=== PATIENT | female | born 1960 | race Caucasian/White ===

== ENCOUNTER 2016-06-19 09:45 | Emergency (ER) | payer OTHER, MEDICAID ==
--- NOTE | 2016-06-19 10:24 | REP ---
Clinical: Chest pain. Comparison: 04/20/2016. Findings: Portable examination creating increased interstitial markings and pulmonary vascular prominence noted. Pulmonary venous congestion cannot definitively be excluded. Trace basilar atelectasis is suggested. No obvious effusion. No pneumothorax. Skeletal structures are intact. Impression: Limited portable examination cannot exclude mild pulmonary venous congestion or basilar atelectasis. Signed by Jose David Bourgeois MD 06/19/2016 10:16 A
--- NOTE | 2016-06-19 10:38 | REP ---
Clinical: Altered mental status . Comparison: None . Findings: The ventricles, sulci, and cisterns are normal in position and appearance. Fish-white differentiation is maintained. No acute intracranial hemorrhage, mass/mass effect, pathology or trauma/injury. No evidence for acute infarction. No extra-axial fluid collection. Calvarium is intact. Paranasal sinuses and mastoid air cells are clear. Impression: Normal noncontrast head CT. No evidence for acute intracranial pathology or trauma/injury. Signed by Jose David Bourgeois MD 06/19/2016 10:29 A
[2016-06-19] MEDS ORDERED: ASPIRIN 81 MG CHEW TABLET As Ordered ONE (10:41)
[2016-06-19 11:06] LABS: BASO % 0.1 % (0.0-1.0); EOS % 0.5 % (0.0-3.0); LARGE UNSTAINED CELL # 0.1 K/mm3 (0.0-0.4); LARGE UNSTAINED CELL % 0.7 % (0.0-4.0); LYMPH # 0.1 K/mm3 (1.5-4.5); LYMPH % 1.9 % (24.0-44.0); MEAN CORPUSCULAR HEMOGLOBIN 30.5 pg (27.0-33.0); MEAN CORPUSCULAR HGB CONC 34.1 g/dl (32.0-36.5); MEAN CORPUSCULAR VOLUME 89.5 fl (80.0-96.0); MONO # 0.1 K/mm3 (0.0-0.8); MONO % 1.5 % (0.0-5.0); NEUTROPHILS # 6.6 K/mm3 (1.8-7.7); NEUTROPHILS % 95.4 % (36.0-66.0); RED CELL DISTRIBUTION WIDTH 13.7 % (11.5-14.5)
[2016-06-19 11:07] LABS: ALBUMIN 2.5 GM/DL (3.2-5.2); ALBUMIN/GLOBULIN RATIO 0.53 (1.00-1.93); ALKALINE PHOSPHATASE 72 U/L (45-117); ALT/SGPT 59 U/L (12-78); AST/SGOT 86 U/L (15-37); BILIRUBIN,TOTAL 1.5 MG/DL (0.2-1.0); TOTAL PROTEIN 7.2 GM/DL (6.4-8.2)
[2016-06-19] MEDS ORDERED: ACETAMINOPHEN 325 MG TAB As Ordered ONE (11:23)
[2016-06-19 11:25] LABS: PLATELET COUNT, AUTOMATED 52 k/mm3 (150-450)
[2016-06-19] MEDS ORDERED: FUROSEMIDE 40 MG/4 ML VIAL (J1940) As Ordered ONE (11:34)
[2016-06-19 12:54] LABS: CREATININE FOR GFR 1.82 MG/DL (0.55-1.02); GLOMERULAR FILTRATION RATE 30.5 (>51); POTASSIUM SERUM 3.4 MEQ/L (3.5-5.1)
[2016-06-19 14:43] LABS: AMPHETAMINES LEVEL URINE NEGATIVE (NEGATIVE); BENZODIAZEPINES URINE NEGATIVE (NEGATIVE); COCAINE METABOLITE URINE NEGATIVE (NEGATIVE); CONTROL LINE INT CTR LINE PRESENT; METHADONE URINE NEGATIVE (NEGATIVE); OPIATES URINE NEGATIVE (NEGATIVE); TRICYCLIC ANTIDEPRESS URINE POSITIVE (NEGATIVE)
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
--- NOTE | 2016-06-20 08:04 | ECGEPIP ---
Stationary ECG Study 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
--- NOTE | 2016-06-20 08:06 | ECGEPIP ---
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
--- NOTE | 2016-06-20 08:11 | ECGEPIP ---
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
--- NOTE | 2016-06-21 20:34 | EDDOCDS ---
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 MD 06/19/2016 10:29 A; Radiology Order: EKG-ADULT Test: EKG-ADULT REASON FOR EXAMINATION: Chest Pain; Stationary ECG Study; [facility] - ED; ; Test Date: 2016-06-19; Pat Name: ESE MALLOY Department:; Room: -; Gender: F Pediatric Dermatologist: [email or web address]; : 1960 Requested By: ORQUIDEA Monterroso; Order Number: [id number] Christine MD: Chiara Reynolds; Measurements; Intervals Ophelia; Rate: 87 P: 46; TX: 189 QRS: -32; QRSD: 86 T: 22; QT: 387; QTc: 466; Interpretive Statements; SINUS RHYTHM; MARKED LEFT AXIS DEVIATION; PATTERN CONSISTENT WITH PULMONARY DISEASE; NSTTW ABNORMALITY; SIMILAR 06/19/16; Electronically Signed On 06-20-2016 8:06:43 EST by Chiara Reynolds; Radiology Order: EKG-ADULT Test: EKG-ADULT REASON FOR EXAMINATION: Chest Pain; Stationary ECG Study; [facility] - ED; ; Test Date: 2016-06-19; Pat Name: ESE MALLOY Department:; Room: -; Gender: F Pediatric Dermatologist: [email or web address]; : 1960 Requested By: ORQUIDEA Monterroso; Order Number: [id number] Reading MD: Chiara Reynolds; Measurements; Intervals Ophelia; Rate: 85 P: 42; TX: 201 QRS: -36; QRSD: 85 T: 17; QT: 377; QTc: 450; Interpretive Statements; SINUS RHYTHM; MARKED LEFT AXIS DEVIATION; PATTERN CONSISTENT WITH PULMONARY DISEASE; NSTTW ABNORMALITY; SIMILAR 06/19/16; Electronically Signed On 06-20-2016 8:11:10 EST by Chiara Reynolds; Outcome: 15:39 Decision to Hospitalize by Provider. fg 17:59 ER care complete, transfer ordered by Provider. fg 18:09 Condition: good. CT Study completed. Admission hand-off: Report called to Jaky Mercedes RN hs1 [facility] ED. 18:28 Discharge Assessment: Patient awake, alert and oriented x 3. No cognitive and/or hs1 functional deficits noted. Patient verbalized understanding of disposition instructions. patient administered narcotics - no. The following High Risk Discharge criteria are identified: None. Transferred by EMS ground [facility] ambulance report to accompanying personnel Bonita Rosado EMT, Edmar Storm [facility]. Property :Personal belongings accompany Pt. 18:38 Patient left the ED. [facility] Signatures: Dispatcher [employer] EDMS Lizette Cortez, Brush Head Maker Unit Dori Dobbs, Brush Head Maker Unit deg Billie Dennis RN NICO [facility] Radha Thomson RN RN srm Roxie Stevens, Reg Reg gb Cliff Simpsona, FIGURE REFINISHER AND REPAIRER FIGURE REFINISHER AND REPAIRER ar3 Jaycee Contreras RN RN hs1 Lovely Rankin [facility] Shirley ThomasRN RN js13 Neetu Bliss, DO DO 2 Orquidea Rico MD MD fg Crane, KelsiRN RN kc3 Tigist Llamas, Reg Reg hs2 Ximena Ramirez nb2 Tono Gayle, Reg Reg pm4 Corrections: (The following items were deleted from the chart) 14:42 09:48 Adult Sepsis Screening: Patient has new or worsening altered mentation (1 point). hs1 Patient has a respiratory rate of greater than or equal to 22 (1 point). hs1 Chart Complete MTDD
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
== END 2016-06-19 18:38 | disposition short-term general hospital (02) ==
LOC: M ED 09:45
DX: R07.9 Chest pain, unspecified (principal); D64.9 Anemia, unspecified; R50.9 Fever, unspecified; D69.6 Thrombocytopenia, unspecified; N17.9 Acute kidney failure, unspecified; I25.10 Atherosclerotic heart disease of native coronary artery without angina pectoris; I50.9 Heart failure, unspecified; E11.29 Type 2 diabetes mellitus with other diabetic kidney complication; M79.7 Fibromyalgia; E78.00 Pure hypercholesterolemia, unspecified; Z90.49 Acquired absence of other specified parts of digestive tract; Z90.79 Acquired absence of other genital organ(s); Z87.891 Personal history of nicotine dependence; Z79.899 Other long term (current) drug therapy; Z88.1 Allergy status to other antibiotic agents; Z88.8 Allergy status to other drugs, medicaments and biological substances; Z91.040 Latex allergy status
CPT/HCPCS: 70450; 71010; 80048; 80076; 80306; 81001; 82550; 82553; 83605; 83880; 84443; 84484; 85025; 87088; 87186; 93005; 93041; 96374; 99285; G0480; J1940